=== PATIENT | male | born 1975 | race Caucasian/White ===

== ENCOUNTER 2017-05-16 16:19 | Outpatient (CLI) | payer OTHER | END 2017-05-16 16:20 | disposition critical access hospital (66) | LOC: EMS 16:19 | PROVIDERS: ATTEND Surgery | DX: M54.5 Low back pain (principal); V96.1 Hang-glider accident injuring occupant; Y93.89 Activity, other specified | CPT/HCPCS: A0425; A0427 ==

== ENCOUNTER 2017-05-16 16:28 | Emergency (ER) | payer OTHER ==
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
[2017-05-16] MEDS ORDERED: HYDROmorphone 1 MG/ML SYRINGE ONE ×3 (16:59→19:07)
[2017-05-16 17:00] LABS: ALBUMIN/GLOBULIN RATIO 1.6 (1.0-2.2); BILIRUBIN,TOTAL 0.3 mg/dL (0.2-1.0); CALCIUM 9.1 mg/dL (8.5-10.3); CREATININE 1.1 mg/dL (0.6-1.2); POTASSIUM 3.8 mmol/L (3.5-5.0); TOTAL PROTEIN 7.4 g/dL (6.7-8.2)
[2017-05-16] MEDS ORDERED: HYDROmorphone 1 MG/ML SYRINGE IVP STA ×3 (17:03→18:35)
[2017-05-16] MEDS ORDERED: diazePAM INJ 5 MG/ML SYRINGE IVP STA ×2 (17:09→19:36)
[2017-05-16] MEDS ORDERED: diazePAM INJ 5 MG/ML SYRINGE ONE ×2 (17:11→19:32)
[2017-05-16] MEDS ORDERED: SODIUM CHLORIDE 0.9% 1,000 ML IV ONE (17:22)
[2017-05-16] MEDS ORDERED: IOPAMIDOL-300 100 ML VIAL IVP ONE (17:27)
[2017-05-16 17:32] LABS: BASOPHILS % (AUTO) 0.3 %; EOSINOPHILS % (AUTO) 0.3 %; HCT - HEMATOCRIT 43.5 % (42.0-52.0); HGB - HEMOGLOBIN 14.5 g/dL (14.0-18.0); LYMPHOCYTES % (AUTO) 31.7 %; MEAN CORPUSCULAR HEMOGLOBIN 30.7 pg (27.0-31.0); MEAN CORPUSCULAR HGB CONC 33.2 g/dL (32.0-36.0); MEAN CORPUSCULAR VOLUME 92.4 fL (80.0-94.0); MEAN PLATELET VOLUME 8.5 fL (7.4-11.4); MONOCYTES # (AUTO) 0.4 10^3/uL (0.0-1.0); MONOCYTES % (AUTO) 6.9 %; NEUTROPHILS # (AUTO) 3.9 10^3/uL (1.5-6.6); NEUTROPHILS % (AUTO) 60.8 %; NUCLEATED RED BLOOD CELLS AUTO 0.1 /100WBC; RED BLOOD COUNT 4.71 10^6/uL (4.70-6.10); RED CELL DISTRIBUTION WIDTH 13.4 % (12.0-15.0); UNCORRECTED WHITE BLOOD COUNT 6.3 x10^3/uL; WHITE BLOOD COUNT 6.3 x10^3/uL (4.8-10.8)
--- NOTE | 2017-05-16 18:07 | CT Preliminary Report ---
Exam: CT Cervical Spine W/O IMPRESSION: 1. No fracture. 2. Normal alignment. Normal prevertebral soft tissues. 3. Mild C5-C6 degenerative disk disease. [facility] SITE ID: [id number]
--- NOTE | 2017-05-16 18:10 | CT Report ---
EXAM: CT CERVICAL SPINE WITHOUT CONTRAST DATE: 05/16/2017 05:35 PM HISTORY: Fall 100ft into trees. COMPARISONS: None. TECHNIQUE: Thin-section axial images were acquired of the cervical spine without contrast. Post-proce ssing: Coronal and sagittal reformats. Other: None. In accordance with CT protocol optimization, one or more of the following dose reduction techniques w ere utilized for this exam: automated exposure control, adjustment of mA and/or KV based on patient s ize, or use of iterative reconstructive technique. FINDINGS: Alignment: Normal. No scoliosis or spondylolisthesis. Bones: No fracture or bone lesion. Interspace Levels/Facets: C1-C2: Unremarkable. C2-C3: Unremarkable. C3-C4: Unremarkable. C4-C5: Unremarkable. C5-C6: Mild disk narrowing. C6-C7: Unremarkable. C7-T1: Unremarkable. Musculature: Normal. No fatty atrophy. Other: The paravertebral and prevertebral soft tissues are normal. The lung apices are clear. IMPRESSION: 1. No fracture. 2. Normal alignment. Normal prevertebral soft tissues. 3. Mild C5-C6 degenerative disk disease. [facility] Referring Provider Line: [phone] SITE ID: [id number]
--- NOTE | 2017-05-16 18:12 | CT Preliminary Report ---
Exam: CT Chest W/ IMPRESSION: No evidence of acute traumatic injury to the chest. [facility] SITE ID: [id number]
--- NOTE | 2017-05-16 18:15 | CT Report ---
EXAM: CT CHEST EXAM DATE: 05/16/2017 04:59 PM. CLINICAL HISTORY: Fall 100ft into trees. COMPARISONS: None. TECHNIQUE: Routine helical CT imaging was performed through the chest. IV contrast: None. Reconstruct ions: Coronal and sagittal. In accordance with CT protocol optimization, one or more of the following dose reduction techniques w ere utilized for this exam: automated exposure control, adjustment of mA and/or KV based on patient s ize, or use of iterative reconstructive technique. FINDINGS: Lungs/Pleura: No nodules, bronchial thickening, consolidation, or edema. Pulmonary vasculature is nor mal. No pericardial or pleural effusion. No pneumothorax. Mediastinum: Normal. No adenopathy or masses. The heart and great vessels are normal. Bones: Unremarkable. Visualized Abdomen: Findings are detailed separately. Other: None. IMPRESSION: No evidence of acute traumatic injury to the chest. [facility] Referring Provider Line: [phone] SITE ID: [id number]
--- NOTE | 2017-05-16 18:22 | CT Report ---
EXAM: CT ABDOMEN AND PELVIS EXAM DATE: 05/16/2017 05:34 PM. CLINICAL HISTORY: Fall 100ft into trees. COMPARISONS: None. TECHNIQUE: Routine helical CT imaging was performed through the abdomen and pelvis. IV contrast: 100 cc Isovue-300. Enteric contrast: No. Reconstructions: Coronal and sagittal. In accordance with CT protocol optimization, one or more of the following dose reduction techniques w ere utilized for this exam: automated exposure control, adjustment of mA and/or KV based on patient s ize, or use of iterative reconstructive technique. FINDINGS: Lung Bases: Findings are detailed separately. Liver: Normal. No masses. Gallbladder/Bile Ducts: Unremarkable. Spleen: Normal. Pancreas: Normal. Adrenal Glands: Normal. Kidneys: Normal. No masses or hydronephrosis. Peritoneal Cavity/Bowel: No dilated or thick-walled bowel is seen. There is no intraperitoneal free a ir or free fluid. There are no enlarged mesenteric or retroperitoneal lymph nodes. There is no eviden ce of appendicitis. Pelvic Organs: Normal. The bladder and visualized pelvic organs are within normal limits. Vasculature: No aneurysms or other significant abnormality. Bones: Lumbar spine findings are detailed separately. There is no evidence of pelvic fracture or disl ocation. The visualized ribs demonstrate no significant abnormalities. Other: There is mild relative enlargement of the left psoas muscle, likely wholesale representative of underlyi ng hematoma. IMPRESSION: 1. There is no evidence of acute traumatic injury to the solid or hollow viscus organs of the abdomen and pelvis. 2. There is mild enlargement of the upper left psoas muscle. This likely represents underlying hemato ma. There is no evidence of significant associated mass effect. 3. Findings within the lumbar spine are detailed separately. [facility] Referring Provider Line: [phone] SITE ID: [id number]
--- NOTE | 2017-05-16 18:42 | CT Preliminary Report ---
Exam: CT Head W/O Impression: Negative unenhanced head CT. No evidence of skull fracture, intracranial hemorrhage or other acute po sttraumatic pathology. SITE ID: [id number]
[2017-05-16 19:14] VITALS: BP 133/83
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
--- NOTE | 2017-05-16 20:02 | CT Report ---
EXAM: CT LUMBAR SPINE EXAM DATE: 05/16/2017 05:34 PM. CLINICAL HISTORY: Fall 100ft into trees. COMPARISONS: None. TECHNIQUE: Thin slice reformatted images were obtained from the patient's abdomen and pelvis CT.. In accordance with CT protocol optimization, one or more of the following dose reduction techniques w ere utilized for this exam: automated exposure control, adjustment of mA and/or KV based on patient s ize, or use of iterative reconstructive technique. FINDINGS: Alignment: Normal. No scoliosis or spondylolisthesis. Bones: Five [id number] lumbar vertebral bodies are present. There is 3 column burst fracture of the L2 vertebral body. There is 0.8 cm bony retropulsion into the spinal canal. There is approximatel y 50% loss of height. There are minimally displaced L2, L3, and possibly L4 transverse process fractu res. Disk Levels/Facets: No evidence of significant underlying degenerative disease. Musculature: There is a small left-sided psoas hematoma. Other: Findings within the abdomen and pelvis are detailed separately. IMPRESSION: 1. There is 3 column burst fracture of the L2 vertebral body with approximately 0.8 cm bony retropuls ion into the spinal canal. No evidence of dislocation. 2. There are minimally displaced fractures of the L2, L3, and possibly L4 left transverse processes. 3. There is a small left psoas hematoma. [facility] Referring Provider Line: [phone] SITE ID: [id number]
--- NOTE | 2017-05-16 20:03 | CT Preliminary Report ---
Exam: CT Thoracic Spine W/O IMPRESSION: No evidence of thoracic spine fracture or dislocation. [facility] SITE ID: [id number]
--- NOTE | 2017-05-16 20:05 | CT Report ---
EXAM: CT THORACIC SPINE EXAM DATE: 05/16/2017 05:34 PM. CLINICAL HISTORY: Fall 100ft into trees. COMPARISONS: None. TECHNIQUE: Thin section reformatted images were obtained from the patient's chest CT. In accordance with CT protocol optimization, one or more of the following dose reduction techniques w ere utilized for this exam: automated exposure control, adjustment of mA and/or KV based on patient s ize, or use of iterative reconstructive technique. FINDINGS: Alignment: Normal. No scoliosis or spondylolisthesis. Bones: No fracture or bone lesion within the thoracic spine. Disk Levels/Facets: No evidence of significant degenerative disease. Musculature: Normal. No fatty atrophy. Other: Findings within the chest are detailed separately. IMPRESSION: No evidence of thoracic spine fracture or dislocation. [facility] Referring Provider Line: [phone] SITE ID: [id number]
== END 2017-05-16 19:44 | disposition short-term general hospital (02) ==
LOC: EDBD → ED 16:28
DX: S32.021A Stable burst fracture of second lumbar vertebra, initial encounter for closed fracture (principal); S32.039A Unspecified fracture of third lumbar vertebra, initial encounter for closed fracture; S30.0XXA Contusion of lower back and pelvis, initial encounter; V96.1 Hang-glider accident injuring occupant; Y93.35 Activity, hang gliding
CPT/HCPCS: 36415; 70450; 71260; 72125; 72128; 72131; 74177; 80053; 83690; 85025; 96361; 96374; 96375; 96376; 99285; G0390; J1170; Q9967; 99284